=== PATIENT | male | born 2000 | race Caucasian/White ===

== ENCOUNTER 2020-05-05 00:52 | Emergency (ER) | payer SELFPAY ==
[2020-05-05 00:55] VITALS: BP 137/97; PULSE 105; RESP 18; TEMP 36.7; O2SAT 94; BMI 26.9
--- NOTE | 2020-05-05 01:02 | XR_ITS ---
WS: [id number] Exam: XR finger LT min 2V [id number] Date/Time of Exam: 05/05/2020 1:04 AM Reason For Exam: thumb., lt, laceration with hatchet No fracture or dislocation. Soft tissue laceration noted involving the distal thumb. No radiopaque fo reign bodies are seen. XR/XR finger LT min 2V [id number] IMPRESSION: 1. Soft tissue injury. No fracture or dislocation.
--- NOTE | 2020-05-05 01:10 | ED_ITS ---
HPI - Wound/Laceration General: Chief Complaint: Wound/Laceration Stated Complaint: thumb lac Time Seen by Provider: 05/05/20 00:54 Source: patient Mode of arrival: ambulatory Limitations: no limitations History of Present Illness: HPI narrative: 19-year-old male patient presents to the emergency department with left thumb laceration. He reports was using a hatchet trying to chop wood when he cut his thumb at approximately 5 PM yesterday. Laceration is 6-7 hours old. He reports continued bleeding. States tetanus shot is up-to-date. Place: home Patient tetanus UTD: Yes Context: accidental Associated symptoms: Reports no associated symptoms; Denies chills, fever(s), nausea or vomiting Review of Systems General: Reports: 10 or more systems reviewed and unremarkable except in HPI and below Const: Denies: fever(s), chills or diaphoresis Eyes: Denies: blurry vision or eye redness ENMT: Denies: throat pain, dental pain or disequilibrium Card: Denies: chest pain, palpitations or irregular heart rhythm Resp: Denies: dyspnea, productive cough, non-productive cough or wheezing GI: Denies: abdominal pain, nausea or vomiting : Denies: dysuria Musc: Reports: joint pain (left thumb); Denies: neck pain or back pain Skin/Breast: Reports: skin tenderness; Denies: rash or pruritus Neuro: Denies: headache(s), weakness in extremities or behavioral changes Psych: Denies: anxiety or depression Myles/Lymph: Denies: easy bruising PFS ED PFSH: Medical History (Updated 05/05/20 @ 01:29 by Matilde Lopes CHILD CARE DEVELOPMENT SPECIALIST) Healthy adult Physical Exam Const: COMMON NORMALS: no acute distress, patient oriented x3, healthy appearing and alert GENERAL APPEARANCE: cooperative, comfortable and well hydrated HENMT: COMMON NORMALS: normocephalic, Normal external nose present and moist oral mucous membranes HEAD & SCALP: normocephalic NOSE: Normal external nose present Eye: COMMON NORMALS: Equal, round and reactive pupils present and EOMs intact bilaterally GENERAL EYE: appearance normal, both eyes and all related structures PUPIL: Yes Equal, round and reactive pupils present Neck/C-Spine: COMMON NORMALS: full ROM and no lymphadenopathy GENERAL: Yes normal visual inspection and Yes trachea midline CERVICAL SPINE: Yes cervical ROM normal Lymph: LYMPHATIC: no lymphadenopathy noted Chest: COMMONS NORMALS: normal inspection of the chest Resp: COMMON NORMALS: normal respiratory effort and clear to auscultation bilaterally AUSCULTATION: clear to auscultation bilaterally Cardio: COMMON NORMALS: regular rhythm, S1 normal heart sound present and S2 normal heart sound present RHYTHM: regular rhythm HEART SOUNDS: S1 normal heart sound present and S2 normal heart sound present GI: COMMON NORMALS: Soft to palpation and non-tender INSPECTION: Yes normal to inspection PALPATION: Yes Soft to palpation : COMMON NORMALS: Yes no CVA tenderness BLADDER/KIDNEY EXAM: Yes no CVA tenderness Back/Pelvis: COMMON NORMALS: no CVA tenderness and thoracic and lumbar spine normal to inspection Extremity: COMMON NORMALS: normal to inspection, full ROM, capillary refill no rmal, no clubbing, cyanosis or edema and no pedal edema GENERAL: Yes normal exam except as noted LEFT UPPER EXTREMITY: Yes hand & digits (left thumb) Left hand and digits: Yes inspection (2.5 cm lac to the ulnar, distal PIP, no nail involvement), Yes palpation (tenderness to the distal ulnar PIP left thumb), Yes ROM (full extension/flexion w/o deficit) and Yes neurovascular exam (distally intact) Neuro: COMMON NORMALS: patient oriented x3 and no focal motor deficits SENSORIUM/ORIENTATION: Yes alert Psych: COMMON NORMALS: mental status grossly normal, Normal thought process present and cooperative ACTIVITY/MOTOR BEHAVIOR: Yes appropriate eye contact THOUGHT PROCESS: Normal thought process present Skin: COMMON NORMALS: no rashes or lesions noted and turgor normal GENERAL SKIN EXAM: no rashes or lesions noted and turgor normal Procedures Nerve Block Nerve Block 1: Time out performed: Yes Local Anesthetic: lidocaine 1% Amount of anesthesia used (mL): 5 Side: left Nerve Blocks: digital (left thumb) Procedure Successful: Yes Patient Tolerated Procedure: well Complications: none Course Vital Signs: Vital signs: Vital Signs Temperature 98.1 F 05/05/20 00:55 Pulse Rate 94 05/05/20 01:43 Respiratory Rate 18 05/05/20 01:43 Blood Pressure 123/86 05/05/20 01:43 Pulse Oximetry 98 05/05/20 01:43 MDM - Wound/Laceration MDM Narrative: Medical decision making narrative: 19-year-old male presents to the emergency department with 6 to 7-hour old thumb laceration. He reports was chopping kindling wood when he excellently cut his left thumb. Digital block completed to fully evaluate the wound, no bleeding at time of initial assessment. X-ray of the left thumb did not appreciate fracture. Formal radiology read is pending. Due to age of laceration, Steri-Strips were applied along with skin adhesive to the Steri-Strips, sutures were not applied secondary to risk of infection due to age of laceration. Prophylactic antibiotics, Keflex, initiated. Dressing applied, Telfa and Keflex. Advised to monitor for signs and symptoms of infection. Wound appeared subcutaneous. Extensive wound debridement and irrigation completed during his stay. Discharge Plan Discharge Patient Disposition: Home Clinical Impression: Laceration of thumb with delay in treatment Qualifiers: Encounter type: initial encounter Laterality: left Qualified Code(s): S61.012A - Laceration without foreign body of left thumb without damage to nail, initial encounter Condition: Stable Prescriptions: New Keflex 500 mg capsule 500 mg PO Q6H 7 Days Qty: 28 RF: 0 Discharge Orders: Discharge ED (Routine); Ordered 05/05/20 Ordered By: Matilde Lopes Discharge Diet: Usual diet Discharge Activity: Limit activity as instructed Patient Instructions: Wound Infection (ED), Finger Laceration (ED), Opioid Safety Activity Restrictions/Additional Instructions: take cephalexin until gone Monitor the wound for signs and symptoms of infection, if redness swelling or foul odor occurs, follow-up with your primary care physician or return to the emergency department Keep the dressing on x48 hours, may remove the dressing after that time. May cleanse with soap and water gently and pat dry, Steri-Strips will come off by themselves. Do not pick at the wound or Steri-Strips. Coding Level of Care Code ED Boat Washer for Tej Fweveline Exam Comprehensive
[2020-05-05] MEDS: cephALEXin 500 mg Capsule PO (01:35)
[2020-05-05] MEDS: ibuprofen 600 mg Tablet PO (01:41)
[2020-05-05 01:43] VITALS: BP 123/86; PULSE 94; RESP 18; O2SAT 98
== END 2020-05-05 01:46 | disposition home or self-care (01) ==
PROVIDERS: Emergency Provider Nurse Practitioner Family
DX: S61.012A Laceration without foreign body of left thumb without damage to nail, initial encounter (principal); W26.0XXA Contact with knife, initial encounter
CPT/HCPCS: 73140; 99283

== ENCOUNTER 2020-07-21 16:05 | Emergency (ER) | payer SELFPAY ==
[2020-07-21 16:09] VITALS: BP 142/82; PULSE 84; RESP 16; TEMP 36.8; O2SAT 96; BMI 26.9
[2020-07-21 16:59] VITALS: RESP 18
--- NOTE | 2020-07-21 17:06 | ED_ITS ---
HPI - Ear Problem General: Chief complaint: Ear Stated complaint: L. EAR INFECTION Time Seen by Provider: 07/21/20 16:51 Source: patient Mode of arrival: ambulatory Limitations: no limitations History of Present Illness: HPI Narrative: Patient is a 20-year-old male who presents to ED today with a complaint of left ear pain. He states pain began approximately 2 days ago. He feels he has an abscess to the left lobule. He states he tried to poke it with a needle but nothing came out . He has had a piercing to the lobule previously but states that was years ago. He currently does not have a piercing. He denies hearing loss, tinnitus, ear drainage. MD Complaint: ear pain Location: left ear Duration: constant Severity: moderate Relieving factors: nothing Exacerbating factors: nothing Discharge from ear: no Associated symptoms: Reports ear or mastoid pain and external ear pain; Denies fever(s), headache(s), neck pain or tinnitus Treatment prior to arrival: none Review of Systems Const: Denies: fever(s), chills, body aches, fatigue or malaise Eyes: Denies: change in vision, blurry vision, photophobia, floaters or seeing flashes ENMT: Reports: ear or mastoid pain; Denies: odynophagia, dental pain, ear discharge, change in hearing, tinnitus, disequilibrium, nasal discharge, nasal congestion, nasal obstruction, epistaxis, post nasal drip or sinus pain GI: Denies: nausea or vomiting Musc: Denies: neck pain Skin/Breast: Denies: rash Neuro: Denies: headache(s) [facility] ED PFSH: Medical History (Updated 07/21/20 @ 17:14 by NANI Rocha) Healthy adult Physical Exam Const: COMMON NORMALS: no acute distress, average body habitus, patient oriented x3, no limitations, healthy appearing, alert and well nourished HENMT: COMMON NORMALS: normocephalic, atraumatic, hearing grossly normal bilaterally, EAC's normal and TM's normal bilaterally HEAD & SCALP: normal to inspection, normocephalic and atraumatic FACE & SINUS: normal facial exam and sinuses nontender EXTERNAL EAR: Yes mastoids normal, Yes no periauricular adenopathy and Yes other (firmness/swelling to L lobule; no fluctuance noted; no redness/warmth) EXTERNAL AUDITORY CANAL: EAC's normal TYMPANIC MEMBRANE: TM's normal bilaterally Neuro: COMMON NORMALS: patient oriented x3 SENSORIUM/ORIENTATION: Yes alert Course Vital Signs: Vital signs: Vital Signs Temperature 98.2 F 07/21/20 16:09 Pulse Rate 87 07/21/20 17:31 Respiratory Rate 18 07/21/20 17:31 Blood Pressure 128/85 07/21/20 17:31 Pulse Oximetry 97 07/21/20 17:31 MDM - Ear MDM Narrative: Medical decision making narrative: I do not appreciate an a bscess at this time. Clinically looks like an auricular chondritis. We will go ahead and treat with antibiotics and refer to ENT in case swelling and pain persists or fails to improve. Return to ED precautions given. Discharge Plan Discharge Patient Disposition: Home Clinical Impression: Chondritis of auricle Qualifiers: Laterality: left Qualified Code(s): H61.032 - Chondritis of left external ear Condition: Stable Prescriptions: New levofloxacin 500 mg tablet 500 mg PO DAILY 7 Days Qty: 7 RF: 0 ibuprofen 800 mg tablet 800 mg PO Q8H PRN (Reason: pain) Qty: 20 RF: 0 Discharge Orders: Discharge ED (Routine); Ordered 07/21/20 Ordered By: Alexa Barrientos Referrals: Ronny Sun MD [Physician] - Activity Restrictions/Additional Instructions: Fill your antibiotics immediately. As we have discussed I will try to set you up with ENT in case symptoms do not improve or worsen. You may return to the emergency department anytime for worsening symptoms despite antibiotic therapy. Coding Level of Care Code ED Industrial Cafeteria Manager for Tej Hsieh
[2020-07-21 17:31] VITALS: BP 128/85; PULSE 87; RESP 18; O2SAT 97
--- NOTE | 2020-07-22 07:39 | DCPLANNER ---
category manager had message to schedule a follow up appointment for patient with ENT, Dr. Sun. category manager emailed patients information to [facility] and Paty at [facility]. Patients information will be printed and reviewed. Clinic will call patient with appointment information.
--- NOTE | 2020-07-27 08:04 | DCPLANNER ---
Patient had a follow up appointment scheduled for 07.22.20 at [facility] ENT with Dr. Sun - patient did attend appointment.
== END 2020-07-21 17:31 | disposition home or self-care (01) ==
PROVIDERS: Emergency Provider Physician Assistant
DX: H61.032 Chondritis of left external ear (principal)
CPT/HCPCS: 99282

== ENCOUNTER 2020-08-12 22:07 | Emergency (ER) | payer OTHER, SELFPAY ==
--- NOTE | 2020-08-12 22:10 | XRR_ITS ---
PROCEDURE INFORMATION: Exam: XR Left Foot Exam date and time: 08/12/2020 10:19 PM Age: 20 years old Clinical indication: Patient HX: Left lateral foot pain. Fell tonight heard crack . TECHNIQUE: Imaging protocol: XR Left foot. Views: 3 or more views. COMPARISON: No relevant prior studies available. FINDINGS: Bones/joints: Normal. Soft tissues: Normal. XR/XR foot LT min 3V* [id number] IMPRESSION: No acute findings.
[2020-08-12 22:35] VITALS: BP 107/70; PULSE 81; RESP 16; TEMP 36.8; O2SAT 95; BMI 28.2
--- NOTE | 2020-08-12 22:59 | W.ED.EXTPRO ---
HPI - Extremity Problem General: Chief complaint: Extremity Injury, Lower Stated complaint: L foot pain, stabbing pain, heard a crack Time Seen by Provider: 08/12/20 22:58 History of Present Illness: HPI Narrative: Patient is a 20-year-old male comes to the ED with left foot pain. Injury occurred just prior to arrival. Patient says he was playing basketball when he jumped and landed on his left foot wrong. He describes any kind of rolled his left ankle. He felt a pop when it happened. He now has some swelling in his foot and ankle. He reports 9 out of 10 pain. Patient took an ibuprofen just after injury he says it has not helped. Associated symptoms: Deny chest pain, fever(s) or rash Review of Systems Const: Denies: fever(s), chills or fatigue Eyes: Denies: change in vision or eye discomfort ENMT: Denies: throat pain, odynophagia, nasal discharge or nasal congestion Card: Denies: chest pain, palpitations, edema, swelling of feet/ankles, dyspnea on exertion or orthopnea Resp: Denies: dyspnea, productive cough or non-productive cough GI: Denies: abdominal pain, nausea, vomiting, diarrhea, constipation or hematochezia : Denies: flank pain, difficulty urinating, dysuria or hematuria Musc: Reports: extremity pain (left ankle and foot pain) and extremity swelling (left ankle and foot swelling); Denies: neck pain or back pain Skin/Breast: Denies: rash or new lesions Neuro: Denies: headache(s), numbness in extremities or weakness in extremities PFS ED PFSH: Medical History Healthy adult Social History Smoking and tobacco status: current every day smoker cigarettes Packs smoked per day: 0.5 Years cigarettes smoked: 3 Physical Exam Const: COMMON NORMALS: no acute distress, patient oriented x3, healthy appearing and alert GENERAL APPEARANCE: cooperative and comfortable HENMT: COMMON NORMALS: normocephalic HEAD & SCALP: normocephalic MOUTH: Normal oral and palatal mucosa present THROAT: posterior oropharynx normal and uvula midline Neck/C-Spine: COMMON NORMALS: supple GENERAL: Yes normal visual inspection Resp: COMMON NORMALS: normal respiratory effort, No retractions, No use of accessory muscles and clear to auscultation bilaterally AUSCULTATION: clear to auscultation bilaterally Cardio: COMMON NORMALS: regular rate, regular rhythm, S1 normal heart sound present, S2 normal heart sound present, No gallops present (Cardio), No clicks present (Cardio), No murmurs present (Cardio) and Peripheral pulses 2+ throughout RATE: regular rate RHYTHM: regular rhythm HEART SOUNDS: S1 normal heart sound present and S2 normal heart sound present PERIPHERAL PULSES: Peripheral pulses 2+ throughout GI: COMMON NORMALS: Normal to inspection, nondistended, normoactive bowel sounds present, Soft to palpation, non-tender and no masses PALPATION: Yes Soft to palpation : COMMON NORMALS: Yes no CVA tenderness BLADDER/KIDNEY EXAM: Yes no CVA tenderness Back/Pelvis: COMMON NORMALS: no CVA tenderness Extremity: GENERAL: Yes normal exam except as noted RIGHT LOWER EXTREMITY: Yes foot & digits Right ankle: Yes inspection (No visible deformity seen, swelling noted and ecchymosis of lateral malleo), Yes palpation (Tender over anterior aspect of lateral malleolus.), Yes ROM (Limited due to pain) and Yes neurovascular exam (Neurovascular intact, pedal pulse 2+.) Neuro: COMMON NORMALS: patient oriented x3 and moves all extremities SENSORIUM/ORIENTATION: Yes alert Skin: GENERAL SKIN EXAM: dry skin Course Vital Signs: Vital signs: Vital Signs Temperature 98.3 F 08/12/20 22:35 Pulse Rate 81 08/12/20 22:35 Respiratory Rate 16 08/12/20 22:35 Blood Pressure 107/70 08/12/20 22:35 Pulse Oximetry 95 08/12/20 22:35 MDM - Extremity (Nontraumatic) MDM Narrative: Medical decision making narrative: Patient is a 20-year-old male comes to the ED with left ankle injury while playing basketball. Patient has some tenderness over the lateral malleolus but no visible deformity noted. Patient has some left ankle swelling and ecchymosis noted. Neurovascular intact. X-ray of left foot and left ankle showed no acute fractures or findings. Patient diagnosed with an ankle sprain and strain and discharged home with some crutches. Rest ice elevate and take [id number] ibuprofen for pain. Follow-up with PCP in 7 to 10 days for reevaluation. Return to ED precautions given. Patient understood agree with plan. Imaging Data^: Xray Ortho: Attestation: I personally reviewed and interpreted this imaging study as follows: Radiologist's impression: [facility] [address] [place] [address]. [place] [address] XRay Report Signed Patient: Giancarlo Malin Unit #: [id number] : 2000 Age/Sex: 20 / M ADM Date: 08/12/20 Loc: ER Room/Bed: Attending Dr: Ordering Provider/Ordering MD: Triston Adams MD Date of Service: 08/12/20 Procedure(s): XR foot LT min 3V* [id number] Accession Number(s): [id number] Report Number: [id number] PROCEDURE INFORMATION: Exam: XR Left Foot Exam date and time: 08/12/2020 10:19 PM Age: 20 years old Clinical indication: Patient HX: Left lateral foot pain. Fell tonight heard crack . TECHNIQUE: Imaging protocol: XR Left foot. Views: 3 or more views. COMPARISON: No relevant prior studies available. FINDINGS: Bones/joints: Normal. Soft tissues: Normal. XR/XR foot LT min 3V* [id number] IMPRESSION: No acute findings. Dictated By: Johann Mtz Signed By: Johann Mtz Signed Date/Time: 08/12/202312 DD/ [address] [place] [address] XRay Report Signed Patient: Giancarlo Malin Unit #: [id number] : 2000 Age/Sex: 20 / M ADM Date: 08/12/20 Loc: ER Room/Bed: Attending Dr: Ordering Provider/Ordering MD: Suraj Sorenson Date of Service: 08/12/20 Procedure(s): XR ankle LT min 3V* 99804 Accession Number(s): [id number] Report Number: [id number] PROCEDURE INFORMATION: Exam: XR Left Ankle Exam date and time: 08/12/2020 11:02 PM Age: 20 years old Clinical indication: Injury or trauma; Other: Basketball injury; Blunt trauma; Injury details: PT was playing basketball and landed on his ankle. PT states he heard a crack. Pain and swelling in left ankle. ; Additional info: Ankle injury with swelling and pain TECHNIQUE: Imaging protocol: XR Left ankle. Views: 3 or more views. COMPARISON: CR (LOW EXM, ) 08/12/2020 10:29 PM FINDINGS: Bones/joints: Normal. Soft tissues: Soft tissue swelling around the ankle. XR/XR ankle LT min 3V* [id number] IMPRESSION: No acute osseous abnormality. Dictated By: Johann Mtz Signed By: Johann Mtz Signed Date/Time: 08/12/202332 DD/ 31 Discharge Plan Discharge Patient Disposition: Home Clinical Impression: Ankle sprain and strain Condition: Stable Prescriptions: No Action ibuprofen 800 mg tablet 800 mg PO Q8H PRN (Reason: pain) Qty: 20 RF: 0 Discharge Orders: Discharge ED (Routine); Ordered 08/12/20 Ordered By: Suraj Sorenson Discharge Diet: Regular Discharge Activity: Limit activity as instructed and Use walker/crutches as instructed Patient Instructions: Ankle Sprain (ED), Ankle Exercises (GEN) Activity Restrictions/Additional Instructions: Follow-up with medical provider as directed in 7 to 10 days for reevaluation. Use crutches and limit weightbearing for the next 2 to 3 days, then advance weightbearing as tolerated. Do range of motion exercises with ankle in the next couple days. Rest, ice and elevate foot and use Rowdy wrap around ankle and foot to help with swelling. Return to the ER or your medical provider if condition worsens. Please read and understand discharge instructions. Thank you for choosing [facility] for your healthcare needs today. Please realize this is an emergency room and that we are providing you with a medical screening exam and this may not be complete and all inclusive of all the testing and or work up that you may need to determine your ailment or severity of your illness. It is very important that you follow up as instructed or that you return to the Emergency Department should you have concerns or if your condition changes or worsens in any way. Coding Level of Care Code ED Chick Grader for Tej Hsieh Exam Comprehensive
[2020-08-12] MEDS: HYDROcodone-acetaminophen 5-325 mg Tablet 1 TAB PO (23:50)
[2020-08-13 00:04] VITALS: BP 107/60; PULSE 70; RESP 16; O2SAT 98
== END 2020-08-13 00:35 | disposition home or self-care (01) ==
PROVIDERS: Emergency Provider Physician Assistant
DX: S93.402A Sprain of unspecified ligament of left ankle, initial encounter (principal); S96.912A Strain of unspecified muscle and tendon at ankle and foot level, left foot, initial encounter; F17.210 Nicotine dependence, cigarettes, uncomplicated; X50.9XXA Other and unspecified overexertion or strenuous movements or postures, initial encounter; Y93.67 Activity, basketball
CPT/HCPCS: 73610; 73630; 99283; E0114

== ENCOUNTER 2021-06-05 15:26 | Emergency (ER) | payer MEDICAID, SELFPAY ==
[2021-06-05 15:44] VITALS: BP 148/84; PULSE 86; RESP 15; TEMP 37.5; O2SAT 98; BMI 25.7
[2021-06-05 15:50] VITALS: BP 148/84; PULSE 86; RESP 15; TEMP 37.5; O2SAT 98
--- NOTE | 2021-06-05 15:57 | ED_ITS ---
Documented by User: NANI Rocha 06/09/21 06:59 HPI - General Adult General: Chief complaint: General Medical Stated complaint: Jaw pain with swelling Time Seen by Provider: 06/05/21 15:38 Source: patient Mode of arrival: ambulatory Limitations: no limitations History of Present Illness: Patient is a 21-year-old male who presents to ED today with a complaint of right-sided facial pain and swelling that began approximately 2 weeks ago after he had a seizure and struck it on the side of a sink. Patient states he was evaluated following the seizure in the [facility] in [place], [place]. He states he followed up with primary care the following day who felt like his swelling and pain was secondary to a dental infection so placed patient on 2 weeks of amoxicillin and gave him some hydrocodone. Patient does not really endorse dental pain at this time. He said he was not having any pain or swelling prior to the trauma. He states pain is failing to improve. He states he is having trouble eating secondary to discomfort. Onset (ago): day(s) Location: face Severity: severe Pain Consistency: constant Relieving factors: none Exacerbating factors: eating and other (chewing, talking) Associated symptoms: Deny chest pain, dyspnea, headache(s), malaise, nausea, rash or vomiting Treatments prior to arrival: other (abx, opiate pain medication) Review of Systems Const: Denies: fever(s), chills, body aches, fatigue or malaise Eyes: Denies: change in vision, blurry vision, photophobia, eye discomfort, eye discharge or eye redness ENMT: Reports: sinus pain; Denies: throat pain, odynophagia, swelling of lips/tongue, bleeding gums, dental pain, nasal discharge or nasal congestion Card: Denies: chest pain Resp: Denies: dyspnea GI: Denies: abdominal pain, nausea or vomiting Musc: Denies: neck pain Skin/Breast: Denies: rash Neuro: Denies: headache(s) [facility] ED PFSH: Medical History Healthy adult Social History Smoking and tobacco status: current every day smoker cigarettes Packs smoked per day: 0.5 Years cigarettes smoked: 3 Physical Exam Const: COMMON NORMALS: no acute distress, average body habitus, patient oriented x3, no limitations, alert and well nourished GENERAL APPEARANCE: cooperative ORIENTATION/CONSCIOUSNESS: Yes awake, Yes oriented to person, Yes oriented to place and Yes oriented to time HENMT: COMMON NORMALS: normocephalic, atraumatic, external ears normal, TM's normal bilaterally and Normal external nose present HEAD & SCALP: normal to inspection, normocephalic and atraumatic FACE & SINUS: sinuses nontender, Facial tenderness on exam of face and sinuses and other (pt has signficiant swelling/tenderness to mid R mandible); no abrasion, no ecchymosis, no erythema, no fluctuance, no laceration, no maxillary instability and no TMJ findings NOSE: Normal external nose present EXTERNAL EAR: Yes external ears normal TYMPANIC MEMBRANE: TM's normal bilaterally MOUTH: Normal oral and palatal mucosa present, lip normal and tongue normal; no TMJ findings TEETH & GINGIVA: Yes fair dentition and Yes other (I don't visualize any active dental infections/severe caries) THROAT: posterior oroph arynx normal, tonsils normal and uvula midline Eye: COMMON NORMALS: Equal, round and reactive pupils present and EOMs intact bilaterally GENERAL EYE: appearance normal, both eyes and all related structures PUPIL: Yes Equal, round and reactive pupils present Neck/C-Spine: COMMON NORMALS: full ROM GENERAL: Yes normal visual inspection CERVICAL SPINE: Yes cervical ROM normal, No pain with cervical ROM, No Cervical spine tenderness, No step off deformity and No Paracervical muscle tenderness Neuro: INDERJIT COMA SCALE: document GCS findings Inderjit coma scale eye opening: Spontaneous Inderjit coma scale verbal response: Orientated [place] coma scale motor response: Obey commands Inderjit coma scale total score: 15 COMMON NORMALS: patient oriented x3, CN's II-XII intact bilaterally, moves all extremities, no focal motor deficits and no sensory deficits noted SENSORIUM/ORIENTATION: Yes alert, Yes oriented to person, Yes oriented to place and Yes oriented to time Skin: COMMON NORMALS: no rashes or lesions noted GENERAL SKIN EXAM: no rashes or lesions noted TRAUMA: no lacerations or abrasions Course Vital Signs: Vital signs: Vital Signs Temperature 99.5 F 06/05/21 15:50 Pulse Rate 86 06/05/21 15:50 Respiratory Rate 15 06/05/21 15:50 Blood Pressure 148/84 06/05/21 15:50 Pulse Oximetry 98 06/05/21 15:50 MDM - General Adult Medical Decision Making 21-year-old male patient comes in today with complaints of swelling to the right facial cheek. Patient reports that 3 weeks ago he had had a seizure and hit the side of the sink and since then has had swelling and discomfort. Patient was seen by outside provider and was given amoxicillin to treat for possible dental infection. Patient has had no improvement and came to the ER today for further evaluation. On exam we no facial swelling to the right mandible. Evaluation of teeth notes no injury. Respirations are even lungs are clear to auscultation. Vital signs are normal except for some elevation in temperature at 99.5 and blood pressure at 148/84. Differential diagnosis includes periapical abscess, mandible fracture, hematoma, cellulitis. CT of the face noted no fractures or obvious abscess. Patient does have facial edema in that area with some deep tissue fluid collection. I am concerned for cellulitis we will continue with clindamycin 450 mg 3 times a day for 7 days due to patient's continued pain and discomfort to the area. Reassured patient that there was no sign of abscess he could follow-up with dentist for further evaluation but needed to see his [facility] care in 2 days for recheck. Patient reported understanding of care plan. Care transferred to SAMUEL Walker pending CT imaging/results Lab Data Radiology Impressions Face CT 06/05/21 16:08 IMPRESSION: 1. Mandible is intact without fracture or dislocation. 2. Potential minimally depressed nasal bone fracture on the axial images, please correlate clinically. 3. Subcutaneous edema and nonlocalized fluid seen in the cheek about the right mandible, may be posttraumatic in nature. 4. Several prominent subcentimeter short axis submandibular lymph nodes, nonspecific. Discharge Plan Discharge Patient Disposition: Home Clinical Impression: Facial cellulitis Condition: Stable Prescriptions: New clindamycin HCl 150 mg capsule 450 mg PO Q8H 7 Days Qty: 63 0RF Continued ibuprofen 800 mg tablet 800 mg PO Q8H PRN (Reason: pain) Qty: 20 0RF Discharge Orders: Discharge ED (Routine); Ordered 06/05/21 Ordered By: Walter Schwarz Discharge Diet: Usual diet Discharge Activity: Increase activity as tolerated Patient Instructions: Atypical Facial Pain (ED) Activity Restrictions/Additional Instructions: Home and rest. Ice or heat to the area to help with swelling and comfort. Drink plenty of water with antibiotic. Stop amoxicillin and take clindamycin as directed. Follow-up with primary care in 2 days for recheck. Return to ER for new concerns. Sign Out Sign Out Data: Patient Sign Out occurred on 06/05/21 at 16:59. Patient's care was discussed, and care was transferred from to Walter Schwarz. Coding Level of Care Code ED Spot Facer for Chg Fwd Exam Detailed Documented by User: SAMUEL Rodriguez 06/05/21 17:32 HPI - General Adult General: Chief complaint: General Medical Stated complaint: Jaw pain with swelling Time Seen by Provider: 06/05/21 15:38 PFSH ED PFSH: Medical History Healthy adult Social History Smoking and tobacco status: current every day smoker cigarettes Packs smoked per day: 0.5 Years cigarettes smoked: 3 Physical Exam Neuro: INDERJIT COMA SCALE: document GCS findings [place] coma scale total score: 15 Course Vital Signs: Vital signs: Vital Signs Temperature 99.5 F 06/05/21 15:50 Pulse Rate 86 06/05/21 15:50 Respiratory Rate 15 06/05/21 15:50 Blood Pressure 148/84 06/05/21 15:50 Pulse Oximetry 98 06/05/21 15:50 MDM - General Adult Medical Decision Making 21-year-old male patient comes in today with complaints of swelling to the right facial cheek. Patient reports that 3 weeks ago he had had a seizure and hit the side of the sink and since then has had swelling and discomfort. Patient was seen by outside provider and was given amoxicillin to treat for possible dental infection. Patient has had no improvement and came to the ER today for further evaluation. On exam we no facial swelling to the right mandible. Evaluation of teeth notes no injury. Respirations are even lungs are clear to auscultation. Vital signs are normal except for some elevation in temperature at 99.5 and bl ood pressure at 148/84. Differential diagnosis includes periapical abscess, mandible fracture, hematoma, cellulitis. CT of the face noted no fractures or obvious abscess. Patient does have facial edema in that area with some deep tissue fluid collection. I am concerned for cellulitis we will continue with clindamycin 450 mg 3 times a day for 7 days due to patient's continued pain and discomfort to the area. Reassured patient that there was no sign of abscess he could follow-up with dentist for further evaluation but needed to see his primary care in 2 days for recheck. Patient reported understanding of care plan. Lab Data Radiology Impressions Face CT 06/05/21 16:08 IMPRESSION: 1. Mandible is intact without fracture or dislocation. 2. Potential minimally depressed nasal bone fracture on the axial images, please correlate clinically. 3. Subcutaneous edema and nonlocalized fluid seen in the cheek about the right mandible, may be posttraumatic in nature. 4. Several prominent subcentimeter short axis submandibular lymph nodes, nonspecific. Discharge Plan Discharge Patient Disposition: Home Clinical Impression: Facial cellulitis Condition: Stable Prescriptions: New clindamycin HCl 150 mg capsule 450 mg PO Q8H 7 Days Qty: 63 0RF Continued ibuprofen 800 mg tablet 800 mg PO Q8H PRN (Reason: pain) Qty: 20 0RF Discharge Orders: Discharge ED (Routine); Ordered 06/05/21 Ordered By: Walter Schwarz Discharge Diet: Usual diet Discharge Activity: Increase activity as tolerated Patient Instructions: Atypical Facial Pain (ED) Activity Restrictions/Additional Instructions: Home and rest. Ice or heat to the area to help with swelling and comfort. Drink plenty of water with antibiotic. Stop amoxicillin and take clindamycin as directed. Follow-up with primary care in 2 days for recheck. Return to ER for new concerns. Sign Out Sign Out Data: Patient Sign Out occurred on 06/05/21 at 16:59. Patient's care was discussed, and care was transferred from to Walter Schwarz. Coding Level of Care Code ED Spot Facer for Heidyg Fwd Exam Detailed
--- NOTE | 2021-06-05 16:08 | CTR_ITS ---
PROCEDURE INFORMATION: Exam: CT Maxillofacial Without Contrast; Mandible Exam date and time: 06/05/2021 4:16 PM Age: 21 years old Clinical indication: Injury or trauma; Blunt trauma (contusions or hematomas); Right; Patient HX: C/O continued R sided jaw/face swelling and pain after seizure and fall 2 weeks ago; Additional info: R mandibular swelling/pain following trauma TECHNIQUE: Imaging protocol: Computed tomography maxillofacial without contrast. Exam focused on the mandible. Radiation optimization: All CT scans at this facility use at least one of these dose optimization techniques: automated exposure control; mA and/or kV adjustment per patient size (includes targeted exams where dose is matched to clinical indication); or iterative reconstruction. COMPARISON: CT head wo con* [id number] 12/08/2017 11:20 PM RADIATION DOSE METRICS: Total DLP (mGy-cm): 764.56 FINDINGS: Bones/joints: Potential minimally depressed nasal bone fracture on the axial images, please correlate clinically. Paranasal sinuses: Normal. No air-fluid levels. Soft tissues: Subcutaneous edema and nonlocalized fluid seen in the cheek about the right mandible, may be posttraumatic in nature. Lymph nodes: Several prominent subcentimeter short axis submandibular lymph nodes, nonspecific. CT/CT facial bones wo con* [id number] IMPRESSION: 1. Mandible is intact without fracture or dislocation. 2. Potential minimally depressed nasal bone fracture on the axial images, please correlate clinically. 3. Subcutaneous edema and nonlocalized fluid seen in the cheek about the right mandible, may be posttraumatic in nature. 4. Several prominent subcentimeter short axis submandibular lymph nodes, nonspecific.
--- NOTE | 2021-06-05 18:01 | PC.NURSE ---
Pt was discharged by Arturo Schwarz. Pt recieved verbal instructions but, left before receiving written instructions and medications. Attempts to contact pt have failed with no way to leave a message.
== END 2021-06-05 17:11 | disposition home or self-care (01) ==
PROVIDERS: Emergency Provider Nurse Practitioner Family
DX: L03.211 Cellulitis of face (principal); F17.210 Nicotine dependence, cigarettes, uncomplicated
CPT/HCPCS: 70486; 99283